=== PATIENT | male | born 1930 | race Hispanic/Latino ===

== ENCOUNTER 2018-01-27 11:03 | Inpatient (IN) | payer MEDICARE ==
--- NOTE | 2018-01-27 12:24 | ED PDOC ---
Arrival/HPI - General Chief Complaint: Abnormal Skin Integrity Time Seen by Provider: 01/27/18 11:56 Historian: Patient - History of Present Illness Narrative History of Present Illness (Text): 01/27/18 12:18 88yo male with right ankle cellulites who was referred to Emergency department by Dr. Lezama for admission. The son by the bedside states patient had a madeline placed on the right ankle in the 80's secondary to old fracture. States he developed nonhealing ulcer on the lateral malleolus s/p and then intermittent cellulites. It has been managed as outpt, until he saw Dr. Lezama today and he referred him to Emergency department for admission. Patient however denies pain to the ankle. Denies fever, chills, nausea, vomiting, any other complaint. Past Medical History - Provider Review Nursing Documentation Reviewed: Yes - Cardiac Hx Cardiac Disorders: No Hx Pacemaker: No - Pulmonary Hx Respiratory Disorders: Yes (SMOKED 1 PPD QUIT) - Neurological Hx Neurological Disorder: Yes (SPINAL STENOSIS-CHORD COMPRESSION.RODS IN HIS NECK) - HEENT Hx HEENT Disorder: Yes (RIGHT EYE BLURRY VISION) Hx Cataracts: Yes Hx Macular Degeneration: Yes (RIGHT EYE) - Renal Hx Renal Disorder: No - Endocrine/Metabolic Hx Endocrine Disorders: No - Hematological/Oncological Hx Blood Disorders: No - Integumentary Hx Dermatological Disorder: Yes Hx Cellulitis: Yes - Musculoskeletal/Rheumatological Hx Musculoskeletal Disorders: Yes (POST LAMINECTOMY C1C2 12-02-17) Hx Falls: Yes - Gastrointestinal Hx Gastrointestinal Disorders: No - Genitourinary/Gynecological Hx Genitourinary Disorders: Yes (URGENCY) - Psychiatric Hx Emotional Abuse: No Hx Physical Abuse: No Hx Substance Use: No - Surgical History Hx Orthopedic Surgery: Yes (RIGHT ANKLE SX WITH SCREWS,NECK SX WITH PINS-SPINAL STENOSIS-CHORD COMPRESS) - Anesthesia Hx Anesthesia: Yes Hx Anesthesia Reactions: No Hx Malignant Hyperthermia: No - Suicidal Assessment Feels Threatened In Home Enviroment: No Family/Social History - Physician Review Nursing Documentation Reviewed: Yes Family/Social History: Unknown Family HX Smoking Status: Former Smoker Hx Alcohol Use: No Hx Substance Use: No Allergies/Home Meds Allergies/Adverse Reactions: Allergies No Known Allergies Allergy (Verified 01/27/18 11:31) Home Medications: Home Meds Medication Instructions Recorded Confirmed Aspirin [Aspirin Chewable] 81 mg PO DAILY 11/26/16 01/27/18 Cholecalciferol [Vitamin D 1000 IU] 1,000 iu PO DAILY 11/26/16 01/27/18 Vit C/Vit E/Lutein/Min/Meredith-3 1 cap PO DAILY 11/26/16 01/27/18 [Ocuvite Softgel] Cu/Se/Vit A/Vit C/Vit E/Zinc 1 tab PO DAILY 01/27/18 01/27/18 [Ocuvite] Review of Systems - Physician Review All systems were reviewed & negative as marked: Yes - Review of Systems Constitutional: Normal Eyes: Normal ENT: Normal Respiratory: Normal Cardiovascular: Normal Gastrointestinal: Normal Genitourinary Male: Normal Musculoskeletal: Arthralgias (Right ankle) Skin: Cellulitis (right ankle) Neurological: Normal Endocrine: Normal Hemo/Lymphatic: Normal Psychiatric: Normal Physical Exam Vital Signs Reviewed: Yes Vital Signs Temp Pulse Resp BP Pulse Ox 01/27/18 15:03 91 H 18 159/79 H 96 01/27/18 13:00 109 H 17 160/88 H 98 01/27/18 11:32 97.9 F 114 H 16 175/84 H 96 Temperature: Afebrile Blood Pressure: Normal Pulse: Tachycardic Respiratory Rate: Normal Appearance: Positive for: Well-Appearing, Non-Toxic, Comfortable Pain Distress: None Mental Status: Positive for: Alert and Oriented X 3 - Systems Exam Head: Present: Atraumatic, Normocephalic Pupils: Present: PERRL Extroacular Muscles: Present: EOMI Conjunctiva: Present: Normal Mouth: Present: Moist Mucous Membranes Neck: Present: Normal Range of Motion Respiratory/Chest: Present: Clear to Auscultation, Good Air Exchange. No: Respiratory Distress, Accessory Muscle Use Cardiovascular: Present: Regular Rate and Rhythm, Normal S1, S2. No: Murmurs Abdomen: No: Tenderness, Distention, Peritoneal Signs Back: Present: Normal Inspection Upper Extremity: Present: Normal Inspection. No: Cyanosis, Edema Lower Extremity: Present: Normal Inspection, Normal ROM, Swelling (right foot/ ankle), Erythema (Distal right lower leg/ankle), Temperature Abnormalties (Warm to touch distal right lower leg/ankle), Neurovascularly Intact. No: Edema, CALF TENDERNESS, Abdiel's Sign, Tenderness Neurological: Present: GCS=15, CN II-XII Intact, Speech Normal Skin: Present: Warm, Dry, Normal Color. No: Rashes Psychiatric: Present: Alert, Oriented x 3, Normal Insight, Normal Concentration Medical Decision Making ED Course and Treatment: 01/27/18 19:59 PT was hemodynamically stable in Emergency department. Lab was noted with mild leukocytosis with a shift. Cellulites of pt's right ankle was noted, in the same plae he have madeline in place. Chest X-ray nad Doppler US - Negative EKG Sinus tachy with PAC @102bpm. Case was DW Dr. Ashraf and he accepted pt to his service. Drs. Lezama and Rosa consult. Pt started on Vancomycin and Zosyn. - Lab Interpretations Lab Results: 01/27/18 12:10 Lab Results 01/27/18 12:10: PT 11.0, INR 0.96, APTT 27.8 01/27/18 12:10: WBC 12.1 H, RBC 4.41, Hgb 12.3 L, Hct 36.3 L, MCV 82.3, MCH 27.9 , MCHC 33.9, RDW 15.5 H, Plt Count 502 H, MPV 8.7, Gran % 73.1 H, Lymph % (Auto ) 17.5 L, [place] % (Auto) 7.6 H, Eos % (Auto) 1.6, Baso % (Auto) 0.2, Gran # 8.85 H, Lymph # (Auto) 2.1, [place] # (Auto) 0.9 H, Eos # (Auto) 0.2, Baso # (Auto) 0.03 - RAD Interpretation Radiology Orders: 01/27/18 12:07 DUPLEX LOWER EXTRM VEIN RIGHT [US] Stat 01/27/18 12:26 CHEST PORTABLE [RAD] Stat - Medication Orders Current Medication Orders: Discontinued Medications Vancomycin HCl (Vancomycin 1gm) 1 gm in 250 mls @ 167 mls/hr IVPB STAT STA PRN Reason: Protocol Stop: 01/27/18 15:12 Last Admin: 01/27/18 15:43 Dose: 167 mls/hr eMAR Start Stop Document 01/27/18 15:43 SF (Rec: 01/27/18 15:43 SF [facility] [id number]) Intravenous Solution Start Date 01/27/18 Start Time 15:43 End Date 01/27/18 Piperacillin Sod/Tazobactam Sod (Zosyn 3.375 In Ns 100ml) 100 mls @ 200 mls/hr IVPB STAT STA PRN Reason: Protocol Stop: 01/27/18 14:12 Last Admin: 01/27/18 15:03 Dose: 200 mls/hr eMAR Start Stop Document 01/27/18 15:03 SF (Rec: 01/27/18 15:04 SF [facility] [id number]) Intravenous Solution Start Date 01/27/18 Start Time 15:04 End Date 01/27/18 End time 15:34 Total Infusion Time 30 Disposition/Present on Arrival - Present on Arrival Any Indicators Present on Arrival: No History of DVT/PE: No History of Uncontrolled Diabetes: No Urinary Catheter: No History of Decub. Ulcer: No History Surgical Site Infection Following: Orthopedic Procedures - Disposition Have Diagnosis and Disposition been Completed?: Yes Diagnosis: Cellulitis Disposition: HOSPITALIZED Disposition Time: 13:35 Patient Problems: Current Active Problems Problem Status Onset Cellulitis Acute Condition: FAIR
[2018-01-27 12:42] LABS: BASO # 0.03 K/mm3 (0.0-2.0); BASO % 0.2 % (0.0-3.0); EOS # 0.2 (0.0-0.7); EOS % 1.6 % (1.5-5.0); GRAN # 8.85 (1.4-6.5); GRAN % 73.1 % (50.0-68.0); HEMOGLOBIN 12.3 g/dL (14.0-18.0); LYMPH # 2.1 (1.2-3.4); LYMPH % 17.5 % (22.0-35.0); MEAN CELL VOLUME 82.3 fl (80.0-105.0); MEAN CORPUSCULAR HEMOGLOBIN 27.9 pg (25.0-35.0); MEAN CORPUSCULAR HGB CONC 33.9 g/dl (31.0-37.0); MEAN PLATELET VOLUME 8.7 fl (7.0-11.0); MONO # 0.9 (0.1-0.6); MONO % 7.6 % (1.0-6.0); RBC 4.41 10^6/uL (3.5-6.1); RED CELL DISTRIBUTION WIDTH 15.5 % (11.5-14.5); WHITE BLOOD COUNT 12.1 10^3/ul (4.5-11.0)
[2018-01-27 12:52] LABS: INR 0.96 (0.93-1.08); PARTIAL THROMBOPLASTIN TIME 27.8 Seconds (25.1-36.5)
[2018-01-27] MEDS ORDERED: Piperacillin/Tazobact 3.375 gm 100 ML IVPB STA (13:43)
[2018-01-27] MEDS ORDERED: Vancomycin 1gm in NS 250ml 1 GM/250 ML BAG IVPB STA (13:43)
[2018-01-27 13:50] LABS: BLOOD UREA NITROGEN 17 mg/dL (7-21); GFR AFRICAN-AMERICAN > 60; GFR NON-AFRICAN AMERICAN > 60
[2018-01-27 13:51] LABS: ALBUMIN 3.8 g/dL (3.0-4.8); ALT/SGPT 24 U/L (7-56); AST/SGOT 42 U/L (17-59); CALCIUM 9.6 mg/dL (8.4-10.5)
--- NOTE | 2018-01-27 14:07 | RAD ---
HISTORY: admission COMPARISON: 12/03/2016 FINDINGS: LUNGS: No active pulmonary disease. PLEURA: No significant pleural effusion identified, no pneumothorax apparent. CARDIOVASCULAR: Normal. OSSEOUS STRUCTURES: No significant abnormalities. VISUALIZED UPPER ABDOMEN: Normal. OTHER FINDINGS: There is mild aortic tortuosity IMPRESSION: No active disease.
--- NOTE | 2018-01-27 17:37 | US ---
PROCEDURE: Right lower extremity venous US HISTORY: Leg pain and swelling. Evaluate for DVT. PHYSICIAN(S): Gregg Kinsey M.D. TECHNIQUE: Duplex sonography and color-flow Doppler with graded compression were used to evaluate the deep venous system of the right lower extremity. FINDINGS: The visualized deep venous system of the right lower extremity is sonographically normal and compressible. Normal waveforms and augmentation are seen. There is no sonographic evidence for deep venous thrombosis in the visualized segments of the right lower extremity. IMPRESSION: 1. No sonographic evidence for deep venous thrombosis in the visualized segments of the right lower extremity.
--- NOTE | 2018-01-27 19:14 | CARD ---
APPROVED REPORT EKG Measurement Heart [id number] <Conclusion> Sinus tachycardia with premature atrial complexes with aberrant conduction Possible Lateral infarct, age undetermined Cannot rule out Inferior infarct, age undetermined Abnormal ECG
[2018-01-27 20:06] VITALS: BMI 26.6
[2018-01-27] MEDS: Acetaminophen 650mg/20.3ml solution UD PO PRN (21:31)
[2018-01-27] MEDS: Piperacillin/Tazobact 3.375 gm 100 ML IVPB SCH (23:01)
[2018-01-28] MEDS: Vancomycin 1gm in NS 250ml 1 GM/250 ML BAG IVPB SCH ×3 (00:06→21:22)
[2018-01-28] MEDS: Piperacillin/Tazobact 3.375 gm 100 ML IVPB SCH ×4 (05:56→23:05)
[2018-01-28 07:11] LABS: BASO # 0.11 K/mm3 (0.0-2.0); EOS # 0.5 (0.0-0.7); EOS % 4.2 % (1.5-5.0); GRAN # 7.39 (1.4-6.5); GRAN % 65.1 % (50.0-68.0); HEMOGLOBIN 11.6 g/dL (14.0-18.0); LYMPH # 2.2 (1.2-3.4); LYMPH % 19.7 % (22.0-35.0); MEAN CELL VOLUME 82.4 fl (80.0-105.0); MEAN CORPUSCULAR HEMOGLOBIN 27.2 pg (25.0-35.0); MEAN PLATELET VOLUME 8.3 fl (7.0-11.0); MONO # 1.1 (0.1-0.6); PLATELET COUNT 506 10^3/uL (120.0-450.0); RBC 4.27 10^6/uL (3.5-6.1); RED CELL DISTRIBUTION WIDTH 15.3 % (11.5-14.5); WHITE BLOOD COUNT 11.3 10^3/ul (4.5-11.0)
[2018-01-28 07:13] LABS: BLOOD UREA NITROGEN 13 mg/dL (7-21); CALCIUM 9.6 mg/dL (8.4-10.5); GFR AFRICAN-AMERICAN > 60; GFR NON-AFRICAN AMERICAN > 60
--- NOTE | 2018-01-28 08:02 | RAD ---
PROCEDURE: Cervical Spine Radiographs. HISTORY: Pain. COMPARISON: None. FINDINGS: BONES: Examination is compromised by limited ability of the patient to position. Patient is again seen to be status post multilevel posterior spinal fusion by transpedicular screws and interconnecting rods from C3 -T1 once again. Diffuse osteopenia suggests osteoporosis. No displaced fractures appreciable down to the approximate C5 level. The patient's shoulders obscure or the inferior cervical spine and the patient is osteopenic enough that attempts at swimmer's view is fail to define mid to inferior cervical vertebral bodies. Motion artifacts also distort attempts at swimmer's view. DISC SPACES: Mild multilevel cervical spondylosis identified. SOFT TISSUES: No gross prevertebral soft tissue thickening appreciated. OTHER FINDINGS: None. IMPRESSION: Post spinal fusion reiterated from C3-T1 without interval spondylolisthesis grossly evident or definitive acute fracture. Marked osteopenia suggests osteoporosis, limiting the interpretation as well as motion artifacts.
--- NOTE | 2018-01-28 08:06 | RAD ---
PROCEDURE: Right Ankle Radiographs. HISTORY: cellulitis, hardware, ? R/O Osteo ? COMPARISON: None FINDINGS: BONES: Diffuse osteopenia suggests osteoporosis. Patient status post ORIF with solitary screw identified at the medial malleolus with prior fracture now healed. Marked joint space narrowing of the tibiotalar joint is identified as well as the fibulotalar articulation with cortical sclerosis and subchondral cyst formation compatible with advanced degenerative joint disease. The ankle mortise is slightly widened at the medial margins. No acute fracture appreciable. Lesser degenerative changes seen the hindfoot and midfoot joints diffusely with vascular calcifications in soft tissues. No overt osteomyelitis pattern is appreciated. JOINTS: As above. SOFT TISSUES: Normal. OTHER FINDINGS: None. IMPRESSION: Advanced degenerative joint disease seen the ankle mortise with limited widening of the medial mortise. Prior ORIF for now all healed fracture medial malleolus identified. Osteopenia suggests osteoporosis. Osteomyelitis is not clearly identified throughout the right ankle however MRI is more sensitive clinically warranted for further evaluation.
--- NOTE | 2018-01-28 11:22 | MRI ---
PROCEDURE: MRI of the right ankle without contrast HISTORY: r/o osteo COMPARISON: TECHNIQUE: MRI of the right ankle was performed in multiple planes using multiple pulse sequences. FINDINGS: Severe degenerative changes are seen in the ankle joint. There is flattening of the talar dome and narrowing of the joint space. There is a screw in the medial malleolus which produces some a metallic artifact. There is no marrow edema to suggest osteomyelitis. The Achilles tendon is normal. The plantar fascia is normal. IMPRESSION: No evidence of osteomyelitis
--- NOTE | 2018-01-28 15:24 | CP.PCM.CON ---
History of Present Illness - History of Present Illness History of Present Illness: 88 year old male with PMH of chronic neck pain with cervical cord compression and extensive laminectomy from C3-T1 underwent C1-C2 laminectomy, history of sepsis secondary to right sided multifocal healthcare-associated pneumonia was sent in to [facility] by his Cement Loader because of non-healing ulcer on his right lateral malleolus. He has had surgery on his right ankle in the for fracture. He has no fever or chills, no nausea or vomiting, no chest pain, no SOB, no headache or dizziness, no abdominal pain, no sore throat, no diarrhea, no dysuria. Infectious Diseases consult is requested to further evaluate and manage. Review of Systems - Review of Systems All systems: reviewed and no additional remarkable complaints except (as per HPI ) Past Patient History - Past Social History Smoking Status: Former Smoker - CARDIAC Hx Cardiac Disorders: No Hx Pacemaker: No - PULMONARY Hx Respiratory Disorders: No - NEUROLOGICAL Hx Neurological Disorder: No - HEENT Hx HEENT Problems: Yes Hx Macular Degeneration: Yes Other/Comment: [place] - RENAL Hx Chronic Kidney Disease: No - ENDOCRINE/METABOLIC Hx Endocrine Disorders: No - HEMATOLOGICAL/ONCOLOGICAL Hx Blood Disorders: No - INTEGUMENTARY Hx Dermatological Problems: No - MUSCULOSKELETAL/RHEUMATOLOGICAL Hx Musculoskeletal Disorders: Yes Hx Spinal Stenosis: Yes Other/Comment: Laminectomy C1 C2 2017 / right hand contracted - GASTROINTESTINAL Hx Gastrointestinal Disorders: Yes HX Swallowing Problems: Yes - GENITOURINARY/GYNECOLOGICAL Hx Genitourinary Disorders: Yes Other/Comment: urinary frequency - PSYCHIATRIC Hx Psychophysiologic Disorder: No - SURGICAL HISTORY Hx Surgeries: Yes Hx Musculoskeletal Surgery: Yes Other/Comment: right ankel surgery screws / cord compression madeline in neck / - ANESTHESIA Hx Anesthesia: Yes Hx Anesthesia Reactions: No Hx Malignant Hyperthermia: No Meds Allergies/Adverse Reactions: Allergies Allergy/AdvReac Type Severity Reaction Status Date / Time No Known Allergies Allergy Verified 01/27/18 11:31 - Medications Medications: Current Medications Acetaminophen (Tylenol 650mg/20.3ml Solution Ud) 640 mg PO Q4 PRN PRN Reason: Pain, Mild (1-3) Last Admin: 01/27/18 21:31 Dose: 640 mg Ibuprofen (Motrin Oral Susp) 200 mg PO BID MARGE Physical Exam - Constitutional Appears: Non-toxic, Chronically Ill - Head Exam Head Exam: NORMAL INSPECTION - ENT Exam ENT Exam: Mucous Membranes Moist - Neck Exam Neck exam: Negative for: Meningismus - Respiratory Exam Respiratory Exam: Decreased Breath Sounds - Cardiovascular Exam Cardiovascular Exam: +S1, +S2 - GI/Abdominal Exam GI & Abdominal Exam: Soft. absent: Tenderness - Extremities Exam Additional comments: right ankle with non-healing ulcer on the lateral side, no oozing, no discharge , no bleeding Results - Vital Signs Recent Vital Signs: Last Vital Signs Temp 97.7 F 01/27/18 19:40 Pulse 91 H 01/27/18 19:40 Resp 18 01/27/18 19:40 BP 159/79 H 01/27/18 19:40 Pulse Ox 96 01/27/18 15:03 - Labs Result Diagrams: 01/28/18 06:45 01/28/18 06:45 Assessment & Plan - Assessment and Plan (Free Text) Plan: Assessment non-healing on right lateral malleolus in this patient with history of right ankle fracture S/P surgery with madeline and screws - no evidence of osteomyelitis on MRI history of sepsis secondary to right sided multifocal healthcare-associated pneumonia chronic neck pain with cervical cord compression and extensive laminectomy from C3-T1 and S/P C1-C2 laminectomy Plan started Zyvox and will monitor clinically
--- NOTE | 2018-01-28 15:27 | CP.PCM.CON ---
History of Present Illness - History of Present Illness History of Present Illness: Podiatry Consult Note - Dr. Gregg Lezama 88 year old male patient PMHx spinal stenosis s/p C1-C2 laminectomy seen and evaluated at bedside for chronic wound to right ankle along with right lower extremity redness and swelling. present at time of visit. Patient seen OOB in recliner with both legs in dependent position. Patient and state the wound first developed approximately 2 years ago during a physical therapy session; was receiving some heat treatment modality and due to having decreased sensation in his LE did not realize the treatment was too hot and burnt himself , resulting in a blister turned eventual wound. Patient states the redness and swelling to his right lower extremity has persisted for over 1 year; with no recent change in appearance. States he has been chair-bound due to his chronic neck/upper back pain and only feels comfortable resting sitting up in a chair, resulting in his legs in a dependent position all day. Denies any pain to his RLE. Offers no other complaints. Denies N/V/F/D/C/SOB/NEWSOME/dizziness. Review of Systems - Review of Systems All systems: reviewed and no additional remarkable complaints except (as per HPI ) Past Patient History - Past Social History Smoking Status: Former Smoker - CARDIAC Hx Cardiac Disorders: No Hx Pacemaker: No - PULMONARY Hx Respiratory Disorders: No - NEUROLOGICAL Hx Neurological Disorder: No - HEENT Hx HEENT Problems: Yes Hx Macular Degeneration: Yes Other/Comment: [place] - RENAL Hx Chronic Kidney Disease: No - ENDOCRINE/METABOLIC Hx Endocrine Disorders: No - HEMATOLOGICAL/ONCOLOGICAL Hx Blood Disorders: No - INTEGUMENTARY Hx Dermatological Problems: No - MUSCULOSKELETAL/RHEUMATOLOGICAL Hx Musculoskeletal Disorders: Yes Hx Spinal Stenosis: Yes Other/Comment: Laminectomy C1 C2 2017 / right hand contracted - GASTROINTESTINAL Hx Gastrointestinal Disorders: Yes HX Swallowing Problems: Yes - GENITOURINARY/GYNECOLOGICAL Hx Genitourinary Disorders: Yes Other/Comment: urinary frequency - PSYCHIATRIC Hx Psychophysiologic Disorder: No - SURGICAL HISTORY Hx Surgeries: Yes Hx Musculoskeletal Surgery: Yes Other/Comment: right ankel surgery screws / cord compression madeline in neck / - ANESTHESIA Hx Anesthesia: Yes Hx Anesthesia Reactions: No Hx Malignant Hyperthermia: No Meds Allergies/Adverse Reactions: Allergies Allergy/AdvReac Type Severity Reaction Status Date / Time No Known Allergies Allergy Verified 01/27/18 11:31 - Medications Medications: Current Medications Acetaminophen (Tylenol 650mg/20.3ml Solution Ud) 640 mg PO Q4 PRN PRN Reason: Pain, Mild (1-3) Last Admin: 01/27/18 21:31 Dose: 640 mg Vancomycin HCl (Vancomycin 1gm) 1 gm in 250 mls @ 167 mls/hr IVPB Q12H MARGE PRN Reason: Protocol Last Admin: 01/28/18 09:25 Dose: 167 mls/hr Piperacillin Sod/Tazobactam Sod (Zosyn 3.375 In Ns 100ml) 100 mls @ 200 mls/hr IVPB Q6 MARGE PRN Reason: Protocol Stop: 02/04/18 00:01 Last Admin: 01/28/18 13:38 Dose: 200 mls/hr Ibuprofen (Motrin Oral Susp) 200 mg PO BID MARGE Last Admin: 01/28/18 09:25 Dose: 200 mg Physical Exam - Constitutional Appears: Well, Non-toxic, No Acute Distress - Extremities Exam Additional comments: VASC: DP and PT pulses nonpalpable secondary to edema b/l. CFT <3 seconds to all digits b/l. Temperature gradient warm to warm b/l, no significant increase in warmth to erythema RLE. Hair growth diminished. NEURO: Gross sensation diminished bilaterally. DERM: Erythema noted to RLE distally in digits extending proximally to midpoint of leg which partially resolves with elevation. Unstageable ulceration noted to lateral aspect of right ankle with overlying eschar measuring approximately 0.8 x 0.7 cm and surrounding hyperkeratotis; no drainage, no purulence, no fluctuance, no malodor. Partial thickness ulceration noted to anterolateral aspect of left lower leg with surrounding hyperkeratotic rim; minimal serous drainage able to be expressed with removal of overlying eschar; no purulence; no fluctuance; no undermining; no tunneling. ORTHO: No pain on palpation noted to bilateral leg wounds. No pain on palpation of erythema to RLE. - Neurological Exam Neurological exam: Alert, Oriented x3 - Psychiatric Exam Psychiatric exam: Normal Affect, Normal Mood Results - Vital Signs Recent Vital Signs: Last Vital Signs Temp 97.8 F 01/28/18 08:20 Pulse 83 01/28/18 08:20 Resp 20 01/28/18 08:20 BP 138/66 01/28/18 08:20 Pulse Ox 97 04/04/18 08:20 - Labs Result Diagrams: 01/28/18 06:45 01/28/18 06:45 Labs: Laboratory Results - last 24 hr 01/28/18 01/28/18 06:45 06:45 WBC 11.3 H RBC 4.27 Hgb 11.6 L Hct 35.2 L MCV 82.4 MCH 27.2 MCHC 33.0 RDW 15.3 H Plt Count 506 H MPV 8.3 Gran % 65.1 Lymph % (Auto) 19.7 L [place] % (Auto) 10.0 H Eos % (Auto) 4.2 Baso % (Auto) 1.0 Gran # 7.39 H Lymph # (Auto) 2.2 [place] # (Auto) 1.1 H Eos # (Auto) 0.5 Baso # (Auto) 0.11 ESR 27 H Retic Count 1.19 Sodium 138 Potassium 4.2 Chloride 102 Carbon Dioxide 32 Anion Gap 8 L BUN 13 Creatinine 0.6 L Est GFR ( Amer) > 60 Est GFR (Non-Af Amer) > 60 Random Glucose 102 Calcium 9.6 Assessment & Plan - Assessment and Plan (Free Text) Assessment: 88 year old male PMHx spinal stenosis s/p C1-C2 laminectomy with 1) RLE erythema secondary to cellulitis vs. venous insufficiency, 2) chronic ulceration right ankle, 3) partial thickness ulceration left leg-stable Plan: Patient seen and evaluated Discussed with attending, Dr. Lezama Afebrile, WBC trending down 11.3 (yest. 12.1) ESR 27 RLE venous duplex (01/27/18): Negative for DVT R ankle XR (01/28/18): intact ORIF; no OM RLE MRI (01/28/18): No OM RLE arterial duplex (01/28/18): inaccurate ABIs due to calcified vessels, right SFA occlusive disease Erythema secondary to cellulitis vs. venous insufficiency - continue abx per ID recs Continue local wound care - Optifoam b/l ankle wounds Podiatry will continue to follow while patient remains in house
--- NOTE | 2018-01-28 16:16 | US ---
PROCEDURE: Lower extremity DISHA exam HISTORY: Peripheral vascular disease with pain and ulceration. Previous smoker. PHYSICIAN(S): Gregg Kinsey MD. FINDINGS: The resting ABIs are relatively normal but likely inaccurate due to calcification: Right, 0.93 and left, 1.25 The brachial systolic pressures are symmetric. The high thigh pressures and waveforms are relatively normal. The right calf PVR waveform is moderately blunted. This is consistent with right SFA occlusive disease. The left calf PVR waveform is relatively normal. The ankle and metatarsal waveforms are moderately to severely blunted bilaterally. This is consistent with bilateral tibial occlusive disease. IMPRESSION: 1. Inaccurate ABIs due to calcified vessels. 2. 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 The distal waveforms are moderately to severely blunted. 4. If further workup is clinically indicated, an MRA with gadolinium runoff, CTA runoff, or conventional arteriogram can be considered.
--- NOTE | 2018-01-28 19:39 | PN ---
DATE: The patient is an 88-year-old male who was admitted to [facility] yesterday by my associate, Dr. Daniel Garay with cellulitis of the right foot and ankle. The patient apparently was seeing his video effects editor, Dr. Lezama, who suggested hospitalization for intravenous antibiotic. The patient had hardware placed in the right ankle in the 80s as a result of an old fracture. He has a nonhealing ulcer on the lateral malleolus. He also had some madeline placement in the cervical spine. So, the patient was admitted, started on intravenous antibiotics. When seen today, he is at MRI for MRI of the ankle. Original x-ray of the ankle showed no signs, no evidence of osteomyelitis; however, suggested MRI followup as to be a more precise evaluation. The patient also underwent x-ray of the C-spine, which showed a madeline from C3 to T1. There is also osteoporosis and osteopenia noted on the x-ray of the C-spine as well as the x-ray of the ankle. This morning, laboratory shows that the white blood cell count is 11.3, hemoglobin and hematocrit were 11.6 and 35.2. Serum chemistries are stable. Vital signs are stable. So, we are continuing with Zosyn 3.375 in normal saline, also with vancomycin every 12 hours. We are giving him ibuprofen for pain and Tylenol for pain as well, and we will be continuing to follow the patient closely along with Dr. Lilly and Dr. Lee, the Infectious Disease specialist as well as Dr. Nance and Dr. Lezama, the podiatrists. Geovanni Garay MD
--- NOTE | 2018-01-28 21:39 | HP ---
CHIEF COMPLAINT: Infection in the right foot. HISTORY OF PRESENT ILLNESS: This is an 88-year-old man, relatively a new patient to our office, only seen once in a house-call in 07/2017. Apparently, patient is essentially home-confined in a wheelchair and bed, waling with a walker up until a week ago. He was seen on the day of admission by his homebirth midwife, Dr. Gregg Lezama, and noted redness, swelling and ulceration in the right ankle where hardware is implanted and summoned an ambulance to bring him to the emergency room for evaluation, admission, antibiotics and further workup. PAST MEDICAL HISTORY: Negative for hypertension, diabetes, tuberculosis, asthma, seizures, TIA, CVA, coronary artery disease. Positive for C-spine surgery in 2005 and then again in 2006 with madeline placement. He fractured his ankle some 30 years ago, had cataract surgery in 2000 and 2001. He suffers from spinal stenosis and macular degeneration. MEDICATIONS: He did not take any medications, only aspirin 81 mg daily. ALLERGIES: NONE. SOCIAL HISTORY: Tobacco, none for over 50 years. Alcohol, no. Caffeine, 3 to 4 cups of coffee per day. He eats a regular diet. 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 He is . Lives with his . REVIEW OF SYSTEMS: Significant for numbness in hands, arthritis in the hands and neck, low back, feet and ankle. disability of hands with ulnar deviation at the metatarsophalangeal joints. PHYSICAL EXAMINATION: GENERAL: Patient was seen in room 567, bed 1, this Friday evening, approximately 7:30 p.m. He is uncomfortable from neck and back arthritis. Awake, alert, appropriate, answers questions and conversing with me. HEENT: Head and neck are unremarkable. Conjunctivae are pink. Skin looks a bit pale. NECK: Supple. Thyroid is not palpable. There is no JVD or carotid bruits present. LUNGS: Show good aeration of right and left anteriorly, laterally and posteriorly. HEART: Regular and not tachycardic. ABDOMEN: Soft, nontender. EXTREMITIES: There is no edema on the left, but the right ankle shows an ulceration. It is swollen, warm and erythematous. LABORATORY DATA: Shows white count is elevated. Chemistries, otherwise, unremarkable. Sed rate was not available yet. He received a dose of vancomycin and other antibiotics (Zosyn) in the emergency room. IMPRESSION: 1. Cellulitis of the right ankle with leg ulcer, elevated white count and implanted hardware. 2. Severe arthritis of the ankle, cervical and lumbar spine. History of spinal stenosis, 3. status post cataract surgery, 4. history of macular degeneration. PLAN: Patient will be admitted to Med-Surg floor. Obviously, the cellulitis with suspected infected hardware and ulcer of foot with elevated white count warrant admission. We will ask ID to consult as well as Podiatry. We will get a x-ray of the foot and ankle to look at the implanted hardware. We will also look for an MRI to rule out osteo. Check a sed rate, morning labs, continue antibiotics per ID. Then physical therapy and rehab. At home, patient ambulates with a walker, but with assistance. As of the last week or so, he has not been ambulatory because of pain in the ankle. Daniel Garay MD MTDElaine
[2018-01-28] MEDS: Acetaminophen 650mg/20.3ml solution UD PO PRN (23:05)
[2018-01-29] MEDS: Piperacillin/Tazobact 3.375 gm 100 ML IVPB SCH ×3 (06:21→18:31)
[2018-01-29 07:22] LABS: BASO # 0.07 K/mm3 (0.0-2.0); BASO % 0.5 % (0.0-3.0); EOS # 0.7 (0.0-0.7); EOS % 5.1 % (1.5-5.0); GRAN # 9.07 (1.4-6.5); GRAN % 68.8 % (50.0-68.0); HEMOGLOBIN 11.8 g/dL (14.0-18.0); LYMPH # 2.4 (1.2-3.4); MEAN CELL VOLUME 82.6 fl (80.0-105.0); MEAN CORPUSCULAR HGB CONC 32.7 g/dl (31.0-37.0); MEAN PLATELET VOLUME 8.1 fl (7.0-11.0); MONO % 7.6 % (1.0-6.0); RBC 4.37 10^6/uL (3.5-6.1); RED CELL DISTRIBUTION WIDTH 15.4 % (11.5-14.5); WHITE BLOOD COUNT 13.2 10^3/ul (4.5-11.0)
[2018-01-29 07:41] LABS: BLOOD UREA NITROGEN 16 mg/dL (7-21); CALCIUM 9.7 mg/dL (8.4-10.5); GFR AFRICAN-AMERICAN > 60; GFR NON-AFRICAN AMERICAN > 60
--- NOTE | 2018-01-29 08:49 | CP.PCM.PN ---
Subjective - Date & Time of Evaluation Date of Evaluation: 01/29/18 Time of Evaluation: 08:49 - Subjective Subjective: Podiatry Progress Note - Dr. Lezama 88 year old male patient seen and evaluated for chronic wound to right ankle and right lower extremity redness and swelling. Patient seen OOB in recliner with legs in dependent position at time of visit. Dressings to bilateral legs appear clean/dry/intact with no strikethrough noted. No acute events overnights. Patient denies any pain to right leg wound currently however experiences mild discomfort when palpated. Offers no other complaints. Denies N/ V/F/D/C/SOB/NEWSOME/dizziness. Objective - Vital Signs/Intake and Output Vital Signs (last 24 hours): Temp Pulse Resp BP Pulse Ox 97.8 F 79 20 111/63 99 01/29/18 08:18 01/29/18 08:18 01/29/18 08:18 01/29/18 08:18 01/29/18 08:18 Intake and Output: 01/29/18 01/29/18 06:59 18:59 Intake Total 1500 Output Total 525 Balance 975 - Medications Medications: Current Medications Acetaminophen (Tylenol 650mg/20.3ml Solution Ud) 640 mg PO Q4 PRN PRN Reason: Pain, Mild (1-3) Last Admin: 01/28/18 23:05 Dose: 640 mg Vancomycin HCl (Vancomycin 1gm) 1 gm in 250 mls @ 167 mls/hr IVPB Q12H MARGE PRN Reason: Protocol Last Admin: 01/28/18 21:22 Dose: 167 mls/hr Piperacillin Sod/Tazobactam Sod (Zosyn 3.375 In Ns 100ml) 100 mls @ 200 mls/hr IVPB Q6 MARGE PRN Reason: Protocol Stop: 02/04/18 00:01 Last Admin: 01/29/18 06:21 Dose: 200 mls/hr Ibuprofen (Motrin Oral Susp) 200 mg PO BID [facility] Last Admin: 01/28/18 17:07 Dose: 200 mg - Labs Labs: 01/29/18 06:45 01/29/18 06:45 PT 11.0 SECONDS (9.4-12.5) 01/27/18 12:10 INR 0.96 (0.93-1.08) 01/27/18 12:10 APTT 27.8 Seconds (25.1-36.5) 01/27/18 12:10 - Constitutional Appears: Well, Non-toxic, No Acute Distress - Extremities Exam Additional comments: VASC: DP and PT pulses nonpalpable secondary to edema b/l. CFT <3 seconds to all digits b/l. Temperature gradient warm to warm b/l, no significant increase in warmth to erythema RLE. Hair growth diminished. NEURO: Gross sensation diminished bilaterally. DERM: Erythema noted to RLE distally in digits extending proximally to midpoint of leg which partially resolves with elevation. Unstageable ulceration noted to lateral aspect of right ankle with overlying eschar measuring approximately 0.8 x 0.7 cm and surrounding hyperkeratotis; no drainage, no purulence, no fluctuance, no malodor. Partial thickness ulceration noted to anterolateral aspect of left lower leg with surrounding hyperkeratotic rim; minimal serous drainage able to be expressed with removal of overlying eschar; no purulence; no fluctuance; no undermining; no tunneling. ORTHO: No pain on palpation noted to bilateral leg wounds. No pain on palpation of erythema to RLE. - Neurological Exam Neurological Exam: Alert, Awake, Oriented x3 - Psychiatric Exam Psychiatric exam: Normal Affect, Normal Mood Assessment and Plan - Assessment and Plan (Free Text) Assessment: 88 year old male PMHx spinal stenosis s/p C1-C2 laminectomy with 1) RLE erythema secondary to cellulitis vs. venous insufficiency, 2) chronic ulceration right ankle, 3) partial thickness ulceration left leg-stable Plan: Patient seen and evaluated alongside attending, Dr. Lezama Afebrile, WBC 13.2 ESR 30 (yesterday 27) RLE venous duplex (01/27/18): Negative for DVT R ankle XR (01/28/18): intact ORIF; no OM RLE MRI (01/28/18): No OM RLE arterial duplex (01/28/18): inaccurate ABIs due to calcified vessels, right SFA occlusive disease Erythema secondary to cellulitis vs. venous insufficiency - continue abx per ID recs To OR today for right ankle wound debridement with application of allograft -NPO orders placed Continue local wound care - Optifoam b/l ankle wounds Podiatry will continue to follow while patient remains in house
[2018-01-29] MEDS: Vancomycin 1gm in NS 250ml 1 GM/250 ML BAG IVPB SCH ×2 (11:41→22:09)
--- NOTE | 2018-01-29 12:34 | CP.PCM.PN ---
Subjective - Date & Time of Evaluation Date of Evaluation: 01/29/18 Time of Evaluation: 11:35 - Subjective Subjective: Planned for procedure on right ankle later today, no fevers, still with right foot pain, no nausea, no diarrhea. Objective - Vital Signs/Intake and Output Vital Signs (last 24 hours): Temp Pulse Resp BP Pulse Ox 97.8 F 79 20 111/63 99 01/29/18 08:18 01/29/18 08:18 01/29/18 08:18 01/29/18 08:18 01/29/18 08:18 Intake and Output: 01/29/18 01/29/18 06:59 18:59 Intake Total 1500 Output Total 525 Balance 975 - Medications Medications: Current Medications Acetaminophen (Tylenol 650mg/20.3ml Solution Ud) 640 mg PO Q4 PRN PRN Reason: Pain, Mild (1-3) Last Admin: 01/28/18 23:05 Dose: 640 mg Vancomycin HCl (Vancomycin 1gm) 1 gm in 250 mls @ 167 mls/hr IVPB Q12H [facility]GE PRN Reason: Protocol Last Admin: 01/28/18 21:22 Dose: 167 mls/hr Piperacillin Sod/Tazobactam Sod (Zosyn 3.375 In Ns 100ml) 100 mls @ 200 mls/hr IVPB Q6 MARGE PRN Reason: Protocol Stop: 02/04/18 00:01 Last Admin: 01/29/18 06:21 Dose: 200 mls/hr Ibuprofen (Motrin Oral Susp) 200 mg PO BID [facility] Last Admin: 01/28/18 17:07 Dose: 200 mg - Labs Labs: 01/29/18 06:45 01/29/18 06:45 PT 11.0 SECONDS (9.4-12.5) 01/27/18 12:10 INR 0.96 (0.93-1.08) 01/27/18 12:10 APTT 27.8 Seconds (25.1-36.5) 01/27/18 12:10 - Constitutional Appears: Non-toxic, Chronically Ill - Head Exam Head Exam: NORMAL INSPECTION - ENT Exam ENT Exam: Mucous Membranes Moist - Neck Exam Neck Exam: absent: Meningismus - Respiratory Exam Respiratory Exam: Decreased Breath Sounds - Cardiovascular Exam Cardiovascular Exam: +S1, +S2 - GI/Abdominal Exam GI & Abdominal Exam: Soft. absent: Tenderness Assessment and Plan - Assessment and Plan (Free Text) Plan: Assessment non-healing wound on right lateral malleolus in this patient with history of right ankle fracture S/P surgery with madeline and screws - no evidence of osteomyelitis on MRI history of sepsis secondary to right sided multifocal healthcare-associated pneumonia chronic neck pain with cervical cord compression and extensive laminectomy from C3-T1 and S/P C1-C2 laminectomy Plan continue Zyvox and follow up results of the procedure to be done on the right ankle will continue to monitor clinically
--- NOTE | 2018-01-29 14:16 | PN ---
DATE: 01/29/2018 TIME: 06:45 LOCATION: Room 567, bed 1. SUBJECTIVE: This is an 88-year-old male known to me, who was an ongoing patient for wound care at home on his right ankle. He has a history of multiple months of a nonhealing wound on the right ankle related to his dependence in activity with chronic edema and some venous insufficiency. It does not respond to local wound care, has some local cellulitis and we had him admitted for medical workup evaluation and possible OR debridement. His past medical history is reviewed and it is positive for significant osteoarthritis of the cervical and central spine with 2006 and 2007 spine surgeries. He had a 30-year-old fracture at the right ankle, which had an ORIF performed with screw placement on the medial side. He suffers from significant spinal stenosis and as such he is minimally ambulatory mostly for transfer purposes and sits and sleeps up in until the last couple of weeks predominantly in a dependant posture with a semi fixed varus flexion deformity on the right ankle. OBJECTIVE: He is alert, sitting in a chair with the feet on the floor today, bent over, complaining of all night long head, spine, and shoulder pain from his arthritic back. He has tenderness with palpation and manipulation of the right ankle and in the area of the ulceration directly over the lateral malleolus. The ulceration has a fibrin moist eschar that measures approximately 1 cm in diameter, it is too tender to remove at the bedside today. There was some local erythema. There is no clinical lymphangitis. The patient also has a partial thickness wound on the lateral side of the left lower extremity approximately 3 cm above the level of the malleolus most likely from skin trauma from transfers and against furniture. His vital signs are stable. He is undergoing antibiotic therapy at this time and we have collected laboratory and x-ray data over the past 24 hours. Both the x-ray and the MRI are negative for osteomyelitis in the fibula bone of the right side. There is significant osteoarthritis and the fracture from 30 years ago on medial malleolus is healed. The hardware remains intact and in position on x-ray. There is no bone marrow edema on the MRI. The patient's labs indicate he seems to be responding to the antibiotic therapy for his pneumonia and the patient is anxious to get home, has a side history note after several home visits and counseling as to the need to get some elevation in the extremity. The family went out and got an electronic reclining chair which the patient says he has been able to for the last week or two to spent the night in and successfully elevate his leg. Clinically, the edema and appearance of the wound have improved since last month, probably a factor of the recent move at home to a more elevated sleeping and sitting position. IMPRESSION: Chronic severe osteoarthritis and spinal stenosis with significant sitting, sleeping, and gait disability. Flexion deformity of the right ankle with a chronic leg ulcer over the lateral malleolus and venous insufficiency aggravated by dependency more on the right side than the left side and a full thickness ulceration of the right lateral malleolus and a partial thickness ulceration of the left lower extremity. PLAN: We discussed with the patient. He was anxious to go home. We feel that a debridement should be performed, but he is too sensitive to perform this debridement at the bedside, so decision is made to take the patient to the operating room under local anesthesia with mild sedation in a position of comfort to perform a full thickness debridement of the necrotic tissue on the right lateral ankle and we are planning to put this on as a 6 p.m. case tonight so as to expedite his ability for discharge planning to occur. We will continue local wound evaluation with home nursing and house calls after discharge. Gregg Lezama DPM
[2018-01-29] MEDS ORDERED: Morphine 2 mg/ml ISec IVP PRN (20:01)
[2018-01-29] MEDS ORDERED: Sodium Chloride 0.9% 1,000 ML IV SCH (20:15)
[2018-01-29] MEDS ORDERED: Bupivacaine 0.5% Inj(30mL) ONE (20:28)
[2018-01-29] MEDS ORDERED: Propofol 10 mg/ml Inj (20 ML) ONE (20:30)
--- NOTE | 2018-01-29 21:11 | PCM.SURG1 ---
Surgeon's Initial Post Op Note - Surgeon's Notes Surgeon: MARSHALL HernandezM Pipe Fitter Marine: Shanel Nance DPM PGY1 Type of Anesthesia: IV Sedation, Local Anesthesia Administered By: Dr. Headley Pre-Operative Diagnosis: Right ankle nonhealing full thickness wound Operative Findings: See operative report. Materials: Integra meshed bilayer wound matrix 5cm x 5cm. Injectables: 8cc 0.5% marcaine plain Post-Operative Diagnosis: Same Operation Performed: Right ankle wound debridement with application of allograft Specimen/Specimens Removed: 1) Right ankle wound culture Estimated Blood Loss: EBL {In ML}: 1 Blood Products Given: N/A Drains Used: No Drains Post-Op Condition: Good Date of Surgery/Procedure: 01/29/18 Time of Surgery/Procedure: 21:17
--- NOTE | 2018-01-30 00:53 | PN ---
DATE: 01/29/2018 SUBJECTIVE: The patient was seen this morning in room 567, bed 1. Cellulitis on the leg is improving. He continues on IV antibiotics. Sed rate was normal. MRI shows no evidence of osteo. He is continued on IV antibiotics per Infectious Disease executive search consultant. I spoke with the patient regarding options, offering him transitional care for additional therapy. He declined the offer and would rather just to go home when he is completed with the antibiotics. We will arrange for [place] visiting nurse to see him at home when he is ready for discharge. He is going to the OR today with Dr. Gregg Lezama, for I & D and debridement of the lateral ankle ulcer. Daniel Garay MD MTDD
[2018-01-30] MEDS: Piperacillin/Tazobact 3.375 gm 100 ML IVPB SCH ×4 (05:39→17:34)
[2018-01-30 08:43] LABS: MEAN CELL VOLUME 83.1 fl (80.0-105.0); MEAN CORPUSCULAR HEMOGLOBIN 27.4 pg (25.0-35.0); MEAN PLATELET VOLUME 8.1 fl (7.0-11.0); RBC 4.38 10^6/uL (3.5-6.1); RED CELL DISTRIBUTION WIDTH 15.4 % (11.5-14.5); WHITE BLOOD COUNT 10.3 10^3/ul (4.5-11.0)
[2018-01-30] MEDS: Vancomycin 1gm in NS 250ml 1 GM/250 ML BAG IVPB SCH ×2 (09:38→21:16)
--- NOTE | 2018-01-30 11:13 | CP.PCM.PN ---
Subjective - Date & Time of Evaluation Date of Evaluation: 01/30/18 Time of Evaluation: 11:54 - Subjective Subjective: Podiatry Progress Note - Dr. Lezama 88 year old male patient seen and evaluated at bedside POD#1 right ankle wound debridement with application of allograft. Patient hemodynamically stable and NAD. No acute events overnight. Reports mild soreness to debridement site. Patient inquiring about his WB status to R foot. Offers no other complaints. Denies N/V/F/D/C/SOB/NEWSOME/dizziness. Objective - Vital Signs/Intake and Output Vital Signs (last 24 hours): Temp Pulse Resp BP Pulse Ox 98 F 85 20 135/58 L 100 01/30/18 06:00 01/30/18 06:00 01/30/18 06:00 01/30/18 06:00 01/30/18 06:00 Intake and Output: 01/30/18 01/30/18 06:59 18:59 Intake Total 180 Output Total 400 Balance -220 - Medications Medications: Current Medications Acetaminophen (Tylenol 650mg/20.3ml Solution Ud) 640 mg PO Q4 PRN PRN Reason: Pain, Mild (1-3) Last Admin: 01/28/18 23:05 Dose: 640 mg Vancomycin HCl (Vancomycin 1gm) 1 gm in 250 mls @ 167 mls/hr IVPB Q12H [facility]GE PRN Reason: Protocol Last Admin: 01/30/18 09:38 Dose: 167 mls/hr Piperacillin Sod/Tazobactam Sod (Zosyn 3.375 In Ns 100ml) 100 mls @ 200 mls/hr IVPB Q6 MARGE PRN Reason: Protocol Stop: 02/04/18 00:01 Last Admin: 01/30/18 06:00 Dose: 200 mls/hr Ibuprofen (Motrin Oral Susp) 200 mg PO BID [facility] Last Admin: 01/30/18 09:35 Dose: 200 mg Morphine Sulfate (Morphine) 2 mg IVP Q15M PRN PRN Reason: Pain, moderate (4-7) - Labs Labs: 01/30/18 08:30 01/29/18 06:45 PT 11.0 SECONDS (9.4-12.5) 01/27/18 12:10 INR 0.96 (0.93-1.08) 01/27/18 12:10 APTT 27.8 Seconds (25.1-36.5) 01/27/18 12:10 - Constitutional Appears: Well, Non-toxic, No Acute Distress - Extremities Exam Additional comments: Dressing to RLE appears clean/dry/intact with no strikethrough noted LLE focused physical exam: VASC: DP and PT pulses nonpalpable secondary to edema. CFT <3 seconds to all digits. Temperature gradient warm to warm. Hair growth diminished. NEURO: Gross sensation diminished DERM: Partial thickness ulceration noted to anterolateral aspect of left lower leg with surrounding hyperkeratotic rim; minimal serous drainage able to be expressed with removal of overlying eschar; no purulence; no fluctuance; no undermining; no tunneling. ORTHO: No pain on palpation noted to left leg wound. - Neurological Exam Neurological Exam: Alert, Awake, Oriented x3 Assessment and Plan - Assessment and Plan (Free Text) Assessment: 88 year old male POD#1 Right ankle wound debridement with application of allograft (DOS 01/29/18) Plan: Patient seen and evaluated Discussed with attending, Dr. Lezama Afebrile, WBC 10.3 Patient may be WBAT bilateral LE for transfers only with assistance (walker, aide) -PT consult placed with precautions - high fall risk RLE dressing maintained - to be changed next week , 02/05 Continue local wound care LLE - optifoam Stable for discharge home per podiatry Podiatry will continue to follow while patient remains in house VNA NEEDED - wound care orders: Dressing changes twice a week. Only change top dressing (outer kerlix and ABD), leave niraj and dressings underneath clean/dry/ intact. Dr. Lezama to change entire dressing 02/05
--- NOTE | 2018-01-30 11:15 | CP.PCM.PN ---
Subjective - Date & Time of Evaluation Date of Evaluation: 01/30/18 Time of Evaluation: 09:35 - Subjective Subjective: Had debridement of the right ankle ulcer yesterday, no fevers, no diarrhea or nausea, wants to go home. Objective - Vital Signs/Intake and Output Vital Signs (last 24 hours): Temp Pulse Resp BP Pulse Ox 97 F L 102 H 18 187/100 H 97 01/29/18 22:00 01/29/18 22:00 01/29/18 22:00 01/29/18 22:00 01/29/18 22:00 Intake and Output: 01/30/18 01/30/18 06:59 18:59 Intake Total 180 Output Total 400 Balance -220 - Medications Medications: Current Medications Acetaminophen (Tylenol 650mg/20.3ml Solution Ud) 640 mg PO Q4 PRN PRN Reason: Pain, Mild (1-3) Last Admin: 01/28/18 23:05 Dose: 640 mg Vancomycin HCl (Vancomycin 1gm) 1 gm in 250 mls @ 167 mls/hr IVPB Q12H MARGE PRN Reason: Protocol Last Admin: 01/29/18 22:09 Dose: 167 mls/hr Piperacillin Sod/Tazobactam Sod (Zosyn 3.375 In Ns 100ml) 100 mls @ 200 mls/hr IVPB Q6 MARGE PRN Reason: Protocol Stop: 02/04/18 00:01 Last Admin: 01/30/18 06:00 Dose: 200 mls/hr Ibuprofen (Motrin Oral Susp) 200 mg PO BID [facility] Last Admin: 01/29/18 18:31 Dose: Not Given Morphine Sulfate (Morphine) 2 mg IVP Q15M PRN PRN Reason: Pain, moderate (4-7) - Labs Labs: 01/29/18 06:45 01/29/18 06:45 PT 11.0 SECONDS (9.4-12.5) 01/27/18 12:10 INR 0.96 (0.93-1.08) 01/27/18 12:10 APTT 27.8 Seconds (25.1-36.5) 01/27/18 12:10 - Constitutional Appears: Chronically Ill - Head Exam Head Exam: NORMAL INSPECTION - ENT Exam ENT Exam: Mucous Membranes Moist - Neck Exam Neck Exam: absent: Meningismus - Respiratory Exam Respiratory Exam: Decreased Breath Sounds - Cardiovascular Exam Cardiovascular Exam: +S1, +S2 - GI/Abdominal Exam GI & Abdominal Exam: Soft. absent: Tenderness - Extremities Exam Additional comments: right foot with dressings in place Assessment and Plan - Assessment and Plan (Free Text) Plan: Assessment non-healing wound on right lateral malleolus in this patient with history of right ankle fracture S/P surgery with madeline and screws - no evidence of osteomyelitis on MRI; S/P debridement POD #1 history of sepsis secondary to right sided multifocal healthcare-associated pneumonia chronic neck pain with cervical cord compression and extensive laminectomy from C3-T1 and S/P C1-C2 laminectomy Plan continue Zyvox and follow up cultures from the right ankle will continue to monitor clinically discussed with Dr. Garay
--- NOTE | 2018-01-30 20:44 | PN ---
DATE: 01/30/2018 SUBJECTIVE: The patient was seen this Friday morning in room 567, bed 1. Out of bed in a chair with his at the bedside. This is the first time I am meeting this clif woman. We spoke at length regarding his progress so far. Cellulitis of the leg is improving with intravenous antibiotics. He went to the OR yesterday for debridements of the wound. From later in the day, I see from the notes that he has been cleared from podiatric standpoint; however, he needs some additional days of intravenous antibiotics. I spoke to the patient and his about discharge plans. Since the patient feels he acquired this decubitus in a subacute rehab facility, there is no way he will allow us to send him back to any subacute rehab facility. He is willing to go to the TCU at [facility]. This will allow us to continue his course of antibiotics and some physical therapy. He has been cleared by podiatry to bear weight and transfer. Case was discussed with the case therapist and nurse practitioner on the floor. I spoke with the Infectious Disease consultants and placed a call to Dr. Gregg Lezama as well. Daniel Garay MD MTDD
[2018-01-31] MEDS: Piperacillin/Tazobact 3.375 gm 100 ML IVPB SCH ×3 (00:05→11:46)
[2018-01-31 08:19] VITALS: BP 129/67; PULSE 79; RESP 18; TEMP 98.5; O2SAT 98
[2018-01-31] MEDS: Vancomycin 1gm in NS 250ml 1 GM/250 ML BAG IVPB SCH (10:06)
--- NOTE | 2018-01-31 10:14 | CP.PCM.PN ---
Subjective - Date & Time of Evaluation Date of Evaluation: 01/31/18 Time of Evaluation: 10:11 - Subjective Subjective: Podiatry Progress Note - Dr. Lezama 88 year old male patient seen and evaluated at bedside POD#2 right ankle wound debridement with application of allograft. Patient hemodynamically stable and NAD. No acute events overnight. Denies of any pain today. Offers no other complaints. Denies N/V/F/D/C/SOB/NEWSOME/dizziness. Objective - Vital Signs/Intake and Output Vital Signs (last 24 hours): Temp Pulse Resp BP Pulse Ox 98.5 F 79 18 129/67 98 01/31/18 08:18 01/31/18 08:18 01/31/18 08:18 01/31/18 08:18 01/31/18 08:18 Intake and Output: 01/31/18 01/31/18 06:59 18:59 Intake Total 120 Balance 120 - Medications Medications: Current Medications Acetaminophen (Tylenol 650mg/20.3ml Solution Ud) 640 mg PO Q4 PRN PRN Reason: Pain, Mild (1-3) Last Admin: 01/28/18 23:05 Dose: 640 mg Vancomycin HCl (Vancomycin 1gm) 1 gm in 250 mls @ 167 mls/hr IVPB Q12H MARGE PRN Reason: Protocol Last Admin: 01/31/18 10:06 Dose: 167 mls/hr Piperacillin Sod/Tazobactam Sod (Zosyn 3.375 In Ns 100ml) 100 mls @ 200 mls/hr IVPB Q6 MARGE PRN Reason: Protocol Stop: 02/04/18 00:01 Last Admin: 01/31/18 06:07 Dose: 200 mls/hr Ibuprofen (Motrin Oral Susp) 200 mg PO BID MARGE Last Admin: 01/31/18 10:07 Dose: 200 mg Morphine Sulfate (Morphine) 2 mg IVP Q15M PRN PRN Reason: Pain, moderate (4-7) - Labs Labs: 01/30/18 08:30 01/29/18 06:45 PT 11.0 SECONDS (9.4-12.5) 01/27/18 12:10 INR 0.96 (0.93-1.08) 01/27/18 12:10 APTT 27.8 Seconds (25.1-36.5) 01/27/18 12:10 - Constitutional Appears: Well, Non-toxic, No Acute Distress - Extremities Exam Additional comments: Dressing to RLE appears clean/dry/intact with no strikethrough noted - Neurological Exam Neurological Exam: Alert, Awake - Psychiatric Exam Psychiatric exam: Normal Affect, Normal Mood Assessment and Plan - Assessment and Plan (Free Text) Assessment: 88 year old male POD#2 Right ankle wound debridement with application of allograft (DOS 01/29/18) Plan: Patient seen and evaluated Discussed with attending, Dr. Lezama Afebrile, WBC 10.3 as of yesterday Patient may be WBAT bilateral LE for transfers only with assistance (walker, aide) -PT consult placed with precautions - high fall risk RLE dressing maintained - to be changed next week , 02/05 Continue local wound care LLE - optifoam Stable for discharge home per podiatry Podiatry will continue to follow while patient remains in house VNA NEEDED - wound care orders: Dressing changes twice a week. Only change top dressing (outer kerlix and ABD), leave niraj and dressings underneath clean/dry/ intact. Dr. Lezama to change entire dressing 02/05
--- NOTE | 2018-01-31 11:48 | OP ---
PROCEDURE DATE: 01/29/2018 SURGEON: Gregg Lezama DPM REGULATORY COMPLIANCE SPECIALIST: Tyler Nance DPM, PGY-1 ANESTHESIOLOGIST: Dr. Headley. TYPE OF ANESTHESIA: IV sedation with local, approximately 8 mL of 0.5% Marcaine plain. PREOPERATIVE DIAGNOSIS: Right ankle nonhealing full thickness wound. POSTOPERATIVE DIAGNOSIS: Right ankle nonhealing full thickness wound. NAME OF PROCEDURE: Right ankle wound debridement with application of skin substitute allograft. INDICATIONS: The patient is an 88-year-old male with the above diagnosis. The patient has exhausted all conservative treatments at this time and now requests surgical intervention. The patient signed the consent after careful explanation of risks, benefits, complications and alternatives for the surgical procedure and wishes to proceed. signed consent as other responsible person. No guarantees were given nor implied. PREPARATION: The patient was brought into the operating room and left on the stretcher for the remainder of the procedure. A time-out was performed for identification of the correct patient and procedure. After the induction of IV sedation, approximately 8 mL of 0.5% Marcaine plain was administered in a proximal V-type fashion to the right ankle wound. The right lower extremity was then prepped and draped in normal sterile manner and the procedure began. PROCEDURE: Attention was directed to the anterolateral aspect of the right ankle where an unstageable ulceration was noted, with an overlying eschar measuring approximately 0.8 x 0.7 cm as well as a surrounding hyperkeratotic rim. Using a 15 blade, the hyperkeratotic rim and eschar cap were revealing a full thickness ulceration. Using the Versajet II system on setting 7, the ulcer was excisionally debrided of all fibrotic and nonviable tissue until a mixture of subcutaneous tissue and healthy bleeding tissue appeared. No purulent drainage was expressed from the ulcer. A wound culture was taken of the debrided ulceration, passed off the operative field and was sent to pathology. Next, an Integra graft measuring 5 cm x 5 cm was applied to the wound site and was put in place using Dermabond and Steri-Strips. The right lower extremity was then dressed with an Adaptic, sterile gauze, ABDs and Kerlix. POSTOPERATIVE CONDITION: The patient tolerated the anesthesia and procedure well and was escorted to the recovery room with vital signs stable and neurovascular status intact to the right lower extremity. The patient is to keep the dressing clean, dry and intact for the next seven days during incorporation of the graft to the patient's wound bed. The patient should remain nonweightbearing to the right lower extremity; however, as the patient is not majorly ambulatory and uses his right lower extremity to transfer, he may weight bear as tolerated to the right lower extremity for transfers with assistance only. Podiatry will continue to follow while patient remains in house. Tyler Nance DPM Gregg Lezama DPM KAILEE
[2018-01-31 11:49] LABS: ALB/GLOB RATIO 1.1 (1.1-1.8); ALBUMIN 3.8 g/dL (3.0-4.8); ALT/SGPT 53 U/L (7-56); AST/SGOT 53 U/L (17-59); BLOOD UREA NITROGEN 15 mg/dL (7-21); CALCIUM 9.5 mg/dL (8.4-10.5); GFR AFRICAN-AMERICAN > 60; GFR NON-AFRICAN AMERICAN > 60
[2018-01-31] MEDS ORDERED: Nystatin 100,000 Units/gm Cream(15 gm) TOP SCH (14:00)
--- NOTE | 2018-02-02 09:56 | DS ---
HISTORY OF PRESENT ILLNESS: This is an 88-year-old man seen only once in a house-call approximately one year ago, on no medications, managing at home severe arthritis. He is followed by a head control clerk who saw him in a house-call, noticed ulceration of the lateral aspect of the right ankle with significant cellulitis around the leg prompting him to come to the emergency room. In the emergency room, his white count is elevated. Hardware was noted in that ankle from a previous fracture. Labs were drawn. Sed rate was ordered. X-rays, MRI and the patient was admitted in, ID consultation with Dr. Lee and Dr. Lilly was requested. The patient was also followed by Dr. Lezama, his head control clerk. With intravenous antibiotics, he did rather well. Tests were negative for osteo. Sed rate is normal. MRI was negative for osteo. Physical therapy was ordered. Options were given to the patient because of his underlying arthritis since the ulceration occurred at a subacute rehab facility long several years ago. There was agree to return to any subacute rehab facility. He is offered transitional care, but on going home. Antibiotics were continued and today, 01/31/2018, he was ready for discharge to home. Case was reviewed with Infectious Disease as well as podiatry. I spoke with the patient's and son at the bedside. He will be discharged to home. Finish with the antibiotics and follow up with the head control clerk in one week. FINAL DISCHARGE DIAGNOSES: 1. Cellulitis. 2. Foot ulcer . 3. Osteoarthritis. Daniel Garay MD
== END 2018-01-31 16:24 | disposition home or self-care (01) | DRG 574 ==
LOC: ED 11:03 → ERH 13:34 → 5RNO 15:51 → OBSVTOIN 21:20
PROVIDERS: ADMIT Internal Medicine; ATTEND Internal Medicine
PROC: 0HRMXK3 Replacement of Right Foot Skin with Nonautologous Tissue Substitute, Full Thickness, External Approach (ICD-10-PCS; 2018-01-29)
PROC: 0HBMXZZ Excision of Right Foot Skin, External Approach (ICD-10-PCS; principal; 2018-01-29 20:38)
DX: L97.319 Non-pressure chronic ulcer of right ankle with unspecified severity (principal); L03.115 Cellulitis of right lower limb; H35.30 Unspecified macular degeneration; I87.2 Venous insufficiency (chronic) (peripheral); L97.929 Non-pressure chronic ulcer of unspecified part of left lower leg with unspecified severity; M19.079 Primary osteoarthritis, unspecified ankle and foot; M21.271 Flexion deformity, right ankle and toes; M48.00 Spinal stenosis, site unspecified; M81.0 Age-related osteoporosis without current pathological fracture; M85.80 Other specified disorders of bone density and structure, unspecified site; Z87.891 Personal history of nicotine dependence; Z98.49 Cataract extraction status, unspecified eye; R35.0 Frequency of micturition